=== PATIENT | male | born 1980 | race Caucasian/White ===

== ENCOUNTER 2017-03-08 08:34 | Emergency (ER) | payer MEDICARE, OTHER ==
[2017-03-08 08:41] VITALS: BP 132/70; PULSE 101; RESP 20; TEMP 97.6
[2017-03-08] MEDS ORDERED: ACTIVATED CHARCOAL 50 GM/240 ML BOTTLE NG-TUBE STA (08:55)
[2017-03-08] MEDS ORDERED: SODIUM CHLORIDE 0.9% 1,000 ML IV STA (08:55)
[2017-03-08] MEDS ORDERED: SODIUM CHLORIDE 0.9% 500 ML IV STA (08:55)
[2017-03-08 09:07] LABS: Basophils # (A) 0.1 k/uL (0-0.2); Basophils % (A) 1 %; CH 25.9; CHCM 31.3; Eosinophils # (A) 0.2 k/uL (0-0.7); Eosinophils % (A) 2 %; HCT 41.9 % (39.0-53.0); HDW 2.51; HGB 13.3 gm/dL (13.0-17.5); Hypochromasia Slight; Luc # (Auto) 0.39; Luc % (Auto) 4; Lymphocytes # (A) 1.6 k/uL (1.0-4.8); Lymphocytes % (A) 15 %; MCH 26.4 pg (25.0-35.0); MCHC 31.8 g/dL (31.0-37.0); MCV 83.2 fL (80.0-100.0); Mean Platelet Volume 7.7; Monocytes # (A) 0.6 k/uL (0-1.0); Monocytes % (A) 5 %; Neutrophils # (A) 7.7 k/uL (1.3-7.7); Neutrophils % (A) 74 %; RBC 5.04 m/uL (4.30-5.90); RDW 14.8 % (11.5-15.5); WBC 10.4 k/uL (3.8-10.6); WBC (Perox) 10.13
[2017-03-08 09:15] LABS: ALT 42 U/L (21-72); AST 25 U/L (17-59); Acetaminophen <10.0 ug/mL; Alcohol <10 mg/dL; Alkaline Phosphatase 68 U/L (38-126); Anion Gap 7 mmol/L; Blood Urea Nitrogen 11 mg/dL (9-20); Calcium 9.7 mg/dL (8.4-10.2); Carbon Dioxide 27 mmol/L (22-30); Chloride 106 mmol/L (98-107); Glucose 89 mg/dL (74-99); Non-African American GFR(MDRD) >60 (>60 ml/min/1.73 sqM); Potassium 4.3 mmol/L (3.5-5.1); Salicylate <1.0 mg/dL; Sodium 140 mmol/L (137-145); Total Bilirubin 0.2 mg/dL (0.2-1.3); Total Protein 6.6 g/dL (6.3-8.2)
--- NOTE | 2017-03-08 09:15 | ED ---
General Adult HPI - General Chief complaint: Overdose Stated complaint: Overdose Time Seen by Provider: 03/08/17 08:49 Source: patient, EMS, RN notes reviewed, old records reviewed Mode of arrival: EMS Limitations: no limitations, altered mental status - History of Present Illness Initial comments: This is a 36 shown male brought to ER for evaluation of psychiatric illness, psychosis, presumed overdose. Patient had possible overdose on lisinopril, unknown, Patient put in ED by mother, Patient also smokes medical marijuana, no known drugs or alcohol abuse. Does have history of psychiatric disease. Patient is in town for family wedding. Usual medications and instrument is related to him by health house healthcare provider. Patient himself is acutely agitated, denies homicidal and suicidal ideation - Related Data Home Medications Medication Instructions Recorded Confirmed Brexpiprazole [Rexulti] 4 mg PO HS 03/08/17 03/08/17 LORazepam [Ativan] 1 mg PO BID 03/08/17 03/08/17 [place] Carbonate 1,200 mg PO HS 03/08/17 03/08/17 Metoprolol Succinate (ER) [Toprol 50 mg PO DAILY 03/08/17 03/08/17 Xl] OXcarbazepine 600 mg PO BID 03/08/17 03/08/17 Paliperidone IM [Invega Sustenna] 234 mg IM Q14D 03/08/17 03/08/17 Paliperidone [Paliperidone ER] 6 mg PO BID 03/08/17 03/08/17 Triamcinolone 0.1% Cream [Kenalog] 1 applicatio TOPICAL BID 03/08/17 03/08/17 Zolpidem [Ambien] 10 mg PO HS PRN 03/08/17 03/08/17 traZODone HCL 100 mg PO HS 03/08/17 03/08/17 Allergies Allergy/AdvReac Type Severity Reaction Status Date / Time adhesive tape Allergy Rash/Hives Verified 03/08/17 12:15 Review of Systems ROS Statement: Those systems with pertinent positive or pertinent negative responses have been documented in the HPI. ROS Other: All systems not noted in ROS Statement are negative. Past Medical History Past Medical History: No Reported History History of Any Multi-Drug Resistant Organisms: None Reported Past Surgical History: No Surgical Hx Reported Past Psychological History: Anxiety, Schizophrenia Smoking Status: Current every day smoker Past Alcohol Use History: Occasional Past Drug Use History: Cocaine, Marijuana General Exam Limitations: no limitations General appearance: alert, in no apparent distress Head exam: Present: atraumatic, normocephalic, normal inspection Eye exam: Present: normal appearance, PERRL, EOMI. Absent: scleral icterus, conjunctival injection, periorbital swelling ENT exam: Present: normal exam, mucous membranes moist Neck exam: Present: normal inspection. Absent: tenderness, meningismus, lymphadenopathy Respiratory exam: Present: normal lung sounds bilaterally. Absent: respiratory distress, wheezes, rales, rhonchi, stridor Cardiovascular Exam: Present: regular rate, normal rhythm, normal heart sounds. Absent: systolic murmur, diastolic murmur, rubs, gallop, clicks GI/Abdominal exam: Present: soft, normal bowel sounds. Absent: distended, tenderness, guarding, rebound, rigid Extremities exam: Present: normal inspection, full ROM, normal capillary refill. Absent: tenderness, pedal edema, joint swelling, calf tenderness Back exam: Present: normal inspection Neurological exam: Present: alert, oriented X3, CN II-XII intact Psychiatric exam: Present: normal affect, normal mood Skin exam: Present: warm, dry, intact, normal color. Absent: rash Course Vital Signs 03/08/17 08:36 Temperature 97.6 F Pulse Rate 101 H Respiratory 20 Rate Blood Pressure 132/70 O2 Sat by Pulse 99 Oximetry - Reevaluation(s) Reevaluation #1: 03/08/17 09:43 Patient refuses to emergency room, patient's mom here in the emergency room refusing to petition patient for psychiatric evaluation, patient remains benign , source was thought denies overdose today. Medical Decision Making - Medical Decision Making 36 no the air for psychiatric evaluation. Patient and patient's mother refusing psychiatric evaluation at this time. Patient discharged into mother's care. - Lab Data Result diagrams: 03/08/17 08:55 03/08/17 08:55 Lab Results 03/08/17 03/08/17 03/08/17 Range/Units 08:55 08:55 08:55 WBC 10.4 (3.8-10.6) k/uL RBC 5.04 (4.30-5.90) m/uL Hgb 13.3 (13.0-17.5) gm/dL Hct 41.9 (39.0-53.0) % MCV 83.2 (80.0-100.0) fL MCH 26.4 (25.0-35.0) pg MCHC 31.8 (31.0-37.0) g/dL RDW 14.8 (11.5-15.5) % Plt Count 238 (150-450) k/uL Neutrophils % 74 % Lymphocytes % 15 % Monocytes % 5 % Eosinophils % 2 % Basophils % 1 % Neutrophils # 7.7 (1.3-7.7) k/uL Lymphocytes # 1.6 (1.0-4.8) k/uL Monocytes # 0.6 (0-1.0) k/uL Eosinophils # 0.2 (0-0.7) k/uL Basophils # 0.1 (0-0.2) k/uL Hypochromasia Slight PT (9.0-12.0) sec INR (<1.2) Sodium 140 (137-145) mmol/L Potassium 4.3 (3.5-5.1) mmol/L Chloride 106 (98-107) mmol/L Carbon Dioxide 27 (22-30) mmol/L Anion Gap 7 mmol/L BUN 11 (9-20) mg/dL Creatinine 0.91 (0.66-1.25) mg/dL Est GFR (MDRD) Af Amer >60 (>60 ml/min/1.73 sqM) Est GFR (MDRD) Non-Af >60 (>60 ml/min/1.73 sqM) Glucose 89 (74-99) mg/dL Calcium 9.7 (8.4-10.2) mg/dL Total Bilirubin 0.2 (0.2-1.3) mg/dL AST 25 (17-59) U/L ALT 42 (21-72) U/L Alkaline Phosphatase 68 (38-126) U/L Total Creatine Kinase 258 H (55-170) U/L CK-MB (CK-2) 2.2 (0.0-2.4) ng/mL CK-MB (CK-2) Rel Index 0.9 Total Protein 6.6 (6.3-8.2) g/dL Albumin 4.0 (3.5-5.0) g/dL Lipase 72 (23-300) U/L Salicylates <1.0 mg/dL Acetaminophen <10.0 ug/mL Serum Alcohol <10 mg/dL 03/08/17 Range/Units 08:55 WBC (3.8-10.6) k/uL RBC (4.30-5.90) m/uL Hgb (13.0-17.5) gm/dL Hct (39.0-53.0) % MCV (80.0-100.0) fL MCH (25.0-35.0) pg MCHC (31.0-37.0) g/dL RDW (11.5-15.5) % Plt Count (150-450) k/uL Neutrophils % % Lymphocytes % % Monocytes % % Eosinophils % % Basophils % % Neutrophils # (1.3-7.7) k/uL Lymphocytes # (1.0-4.8) k/uL Monocytes # (0-1.0) k/uL Eosinophils # (0-0.7) k/uL Basophils # (0-0.2) k/uL Hypochromasia PT 10.6 (9.0-12.0) sec INR 1.0 (<1.2) Sodium (137-145) mmol/L Potassium (3.5-5.1) mmol/L Chloride (98-107) mmol/L Carbon Dioxide (22-30) mmol/L Anion Gap mmol/L BUN (9-20) mg/dL Creatinine (0.66-1.25) mg/dL Est GFR (MDRD) Af Amer (>60 ml/min/1.73 sqM) Est GFR (MDRD) Non-Af (>60 ml/min/1.73 sqM) Glucose (74-99) mg/dL Calcium (8.4-10.2) mg/dL Total Bilirubin (0.2-1.3) mg/dL AST (17-59) U/L ALT (21-72) U/L Alkaline Phosphatase (38-126) U/L Total Creatine Kinase (55-170) U/L CK-MB (CK-2) (0.0-2.4) ng/mL CK-MB (CK-2) Rel Index Total Protein (6.3-8.2) g/dL Albumin (3.5-5.0) g/dL Lipase (23-300) U/L Salicylates mg/dL Acetaminophen ug/mL Serum Alcohol mg/dL Disposition Clinical Impression: Suicidal behavior, Bipolar disorder, Shelly Disposition: Left Against Medical Advice Referrals: Nonstaff,Physician [REFERRING] - 1-2 days
[2017-03-08 09:26] LABS: Prothrombin Time 10.6 sec (9.0-12.0)
[2017-03-08 09:36] LABS: Creatine Kinase MB 2.2 ng/mL (0.0-2.4)
--- NOTE | 2017-03-10 08:52 | CDI ---
Documentation Clarification OP Dear Seamus Stevens Please do addendum to ED report for missing Clinical Impression Thank you, Lucas German Quality Control Assistant If you have any questions, please contact [employer]ice at [phone] [facility]
== END 2017-03-08 09:40 | disposition left against medical advice (07) ==
LOC: EC 08:34
DX: F30.9 Manic episode, unspecified (principal); R45.851 Suicidal ideations; F41.9 Anxiety disorder, unspecified; F20.9 Schizophrenia, unspecified; F17.200 Nicotine dependence, unspecified, uncomplicated; Z53.29 Procedure and treatment not carried out because of patient's decision for other reasons; Z91.048 Other nonmedicinal substance allergy status; Z79.899 Other long term (current) drug therapy
CPT/HCPCS: 36415; 80053; 80178; 80306; 80320; 82075; 82550; 82553; 83520; 83690; 85025; 85610; 96360; 99284

== ENCOUNTER 2017-03-08 11:57 | Emergency (ER) | payer MEDICARE, OTHER ==
[2017-03-08 12:22] VITALS: RESP 18
--- NOTE | 2017-03-08 12:34 | ED ---
General Adult HPI - General Chief complaint: Psychiatric Symptoms Stated complaint: mental health Time Seen by Provider: 03/08/17 12:15 Source: patient, RN notes reviewed, old records reviewed Mode of arrival: ambulatory Limitations: no limitations - History of Present Illness Initial comments: This is a 36 [place] earlier for evaluation by psychiatry, patient's blood in for reevaluation today of psychiatric disease and illness. [place] under petition this time. Patient is still combative and hostile, noncooperative, is reviewed from EMS and family, - Related Data Home Medications Medication Instructions Recorded Confirmed Brexpiprazole [Rexulti] 4 mg PO HS 03/08/17 03/08/17 LORazepam [Ativan] 1 mg PO BID 03/08/17 03/08/17 [place] Carbonate 1,200 mg PO HS 03/08/17 03/08/17 Metoprolol Succinate (ER) [Toprol 50 mg PO DAILY 03/08/17 03/08/17 Xl] OXcarbazepine 600 mg PO BID 03/08/17 03/08/17 Paliperidone IM [Invega Sustenna] 234 mg IM Q14D 03/08/17 03/08/17 Paliperidone [Paliperidone ER] 6 mg PO BID 03/08/17 03/08/17 Triamcinolone 0.1% Cream [Kenalog] 1 applicatio TOPICAL BID 03/08/17 03/08/17 Zolpidem [Ambien] 10 mg PO HS PRN 03/08/17 03/08/17 traZODone HCL 100 mg PO HS 03/08/17 03/08/17 Allergies Allergy/AdvReac Type Severity Reaction Status Date / Time adhesive tape Allergy Rash/Hives Verified 03/08/17 12:15 Review of Systems ROS Statement: Those systems with pertinent positive or pertinent negative responses have been documented in the HPI. ROS Other: All systems not noted in ROS Statement are negative. Past Medical History Past Medical History: No Reported History History of Any Multi-Drug Resistant Organisms: None Reported Past Surgical History: No Surgical Hx Reported Past Psychological History: Anxiety, Schizophrenia Smoking Status: Current every day smoker Past Alcohol Use History: Occasional Past Drug Use History: Cocaine, Marijuana General Exam Limitations: no limitations General appearance: alert, in no apparent distress Head exam: Present: atraumatic, normocephalic, normal inspection Eye exam: Present: normal appearance, PERRL, EOMI. Absent: scleral icterus, conjunctival injection, periorbital swelling ENT exam: Present: normal exam, mucous membranes moist Neck exam: Present: normal inspection. Absent: tenderness, meningismus, lymphadenopathy Respiratory exam: Present: normal lung sounds bilaterally. Absent: respiratory distress, wheezes, rales, rhonchi, stridor Cardiovascular Exam: Present: regular rate, normal rhythm, normal heart sounds. Absent: systolic murmur, diastolic murmur, rubs, gallop, clicks GI/Abdominal exam: Present: soft, normal bowel sounds. Absent: distended, tenderness, guarding, rebound, rigid Extremities exam: Present: normal inspection, full ROM, normal capillary refill. Absent: tenderness, pedal edema, joint swelling, calf tenderness Back exam: Present: normal inspection Neurological exam: Present: alert, oriented X3, CN II-XII intact Psychiatric exam: Present: normal affect, normal mood Skin exam: Present: warm, dry, intact, normal color. Absent: rash Course Vital Signs 03/08/17 12:16 Temperature 98.1 F Pulse Rate 111 H Respiratory 18 Rate Blood Pressure 117/62 O2 Sat by Pulse 96 Oximetry - Reevaluation(s) Reevaluation #1: 03/08/17 12:33 Patient medically clear for psychiatric evaluation Reevaluation #2: 03/08/17 12:34 Evaluating patient's current chart which shows no overdose, all toxins are negative Medical Decision Making - Medical Decision Making 36 male to ED with psychiatric disease patient was seen and evaluated by psychiatry and can be discharged home. - Lab Data Lab Results 03/08/17 03/08/17 Range/Units 08:57 12:50 Urine Opiates Screen Not Detected (NotDetected) Ur Oxycodone Screen Not Detected (NotDetected) Urine Methadone Screen Not Detected (NotDetected) Ur Propoxyphene Screen Not Detected (NotDetected) Ur Barbiturates Screen Not Detected (NotDetected) U Tricyclic Antidepress Not Detected (NotDetected) Ur Phencyclidine Scrn Not Detected (NotDetected) Ur Amphetamines Screen Not Detected (NotDetected) U Methamphetamines Scrn Not Detected (NotDetected) U Benzodiazepines Scrn Detected H (NotDetected) [place] 0.8 mmol/L Urine Cocaine Screen Not Detected (NotDetected) U Marijuana (THC) Screen Detected H (NotDetected) Disposition Clinical Impression: Shelly, Bipolar disorder Disposition: HOME SELF-CARE Condition: Good Instructions: Mood Disorders (ED) Referrals: Nonstaff,Physician [Primary Care Provider] - 1-2 days
[2017-03-08 16:09] VITALS: BP 150/91; PULSE 101; TEMP 97.6
== END 2017-03-08 16:08 | disposition home or self-care (01) ==
LOC: EC 11:57
DX: F31.9 Bipolar disorder, unspecified (principal); F41.9 Anxiety disorder, unspecified; F20.9 Schizophrenia, unspecified; F17.200 Nicotine dependence, unspecified, uncomplicated; Z79.899 Other long term (current) drug therapy; Z91.048 Other nonmedicinal substance allergy status
CPT/HCPCS: 36415; 80178; 80306; 82075; 99284

== ENCOUNTER 2018-03-06 13:04 | Emergency (ER) | payer MEDICARE, OTHER ==
--- NOTE | 2018-03-06 14:54 | ED ---
General Adult HPI - General Source: patient, family Mode of arrival: ambulatory Limitations: no limitations <Stephen Álvarez - Last Filed: 03/06/18 14:54> <Soren Laurent - Last Filed: 03/07/18 16:27> - General Chief complaint: Psychiatric Symptoms Stated complaint: Mental Health - History of Present Illness Initial comments: Dictation was produced using [employer] dictation software. please excuse any grammatical, word or spelling errors. Chief Complaint: 37-year-old male past medical history of illicit drug abuse, schizophrenia,, bipolar disease presents with suicidal and homicidal ideation. History of Present Illness: A 37-year-old male with mental delay with multiple psychiatric history presents with suicidal ideation and homicidal ideation. Patient states he is having auditory hallucinations. Patient is a poor historian. He presents with family member. Patient has history of being admitted to inpatient psych multiple medications. Patient has exhibited expressive behavior in psych facility. The ROS documented in this emergency department record has been reviewed and confirmed by me. Those systems with pertinent positive or negative responses have been documented in the HPI. All other systems are other negative and/or noncontributory. (Stephen Álvarez) - Related Data Home Medications Medication Instructions Recorded Confirmed Paliperidone IM [Invega Sustenna] 234 mg IM Q28D 03/08/17 03/07/18 Benztropine Mesylate [Cogentin] 2 mg PO DAILY 03/07/18 03/07/18 [place] Carbonate [[place] 1,800 mg PO DAILY 03/07/18 03/07/18 Carbonate ER] Metoprolol Succinate (ER) [Toprol 100 mg PO DAILY 03/07/18 03/07/18 Xl] OLANZapine 20 mg PO DAILY 03/07/18 03/07/18 [place]-3 Fatty Acids/Fish Oil [Fish 1 cap PO DAILY 03/07/18 03/07/18 Oil 1,000 mg Softgel] buPROPion XL [Wellbutrin Xl] 150 mg PO DAILY 03/07/18 03/07/18 metFORMIN HCL [Glucophage] 500 mg PO BID 03/07/18 03/07/18 Allergies Allergy/AdvReac Type Severity Reaction Status Date / Time adhesive tape Allergy Rash/Hives Verified 03/06/18 13:29 Review of Systems ROS Other: All systems not noted in ROS Statement are negative. <Stephen Álvarez - Last Filed: 03/06/18 14:54> ROS Other: All systems not noted in ROS Statement are negative. <Soren Laurent - Last Filed: 03/07/18 16:27> ROS Statement: Those systems with pertinent positive or pertinent negative responses have been documented in the HPI. Past Medical History Past Medical History: No Reported History History of Any Multi-Drug Resistant Organisms: None Reported Past Surgical History: No Surgical Hx Reported Past Psychological History: Anxiety, Bipolar, Schizophrenia Smoking Status: Current every day smoker Past Alcohol Use History: Occasional Past Drug Use History: Cocaine, Marijuana <Stephen Álvarez - Last Filed: 03/06/18 14:54> General Exam Limitations: no limitations <Stephen Álvarez - Last Filed: 03/06/18 14:54> <Soren Laurent - Last Filed: 03/07/18 16:27> - General Exam Comments Initial Comments: PHYSICAL EXAM: General Impression: Alert and oriented x3, not in acute distress HEENT: Normocephalic atraumatic, extra-ocular movements intact, pupils equal and reactive to light bilaterally, mucous membranes moist. Cardiovascular: Heart regular rate and rhythm, S1&S2 audible, no murmurs, rubs or gallops Chest: Lungs clear to auscultation bilaterally, no rhonchi, no wheeze, no rales Abdomen: Bowel sounds present, abdomen soft, non-tender, non-distended, no organomegaly Musculoskeletal: Pulses present and equal in all extremities, no peripheral edema Motor: Power 5/5 bilaterally, no focal deficits noted Neurological: CN II-XII grossly intact, no focal motor or sensory deficits noted Skin: Intact with no visualized rashes Psych: Tangential speech, poor affect (Stephen Álvarez) Course <Stephen Álvarez - Last Filed: 03/06/18 14:54> <Soren Laurent - Last Filed: 03/07/18 16:27> Vital Signs 03/06/18 03/07/18 03/07/18 13:26 05:29 14:59 Temperature 98.5 F 98.0 F 98.9 F Pulse Rate 101 H 92 98 Respiratory 20 17 16 Rate Blood Pressure 144/84 139/58 134/75 O2 Sat by Pulse 98 98 100 Oximetry - Reevaluation(s) Reevaluation #1: 03/07/18 16:26 The patient rested comfortably throughout the morning and afternoon. He will be transferred to [facility] for inpatient evaluation and treatment (Soren Laurent) Medical Decision Making <Stephen Álvarez - Last Filed: 03/06/18 14:54> - Lab Data Result diagrams: 03/06/18 15:33 03/06/18 15:33 <Soren Laurent - Last Filed: 03/07/18 16:27> - Medical Decision Making ED course: Old male with extensive psychiatric history presents with suicidal, homicidal ideation and auditory hallucinations. Clinical presentation consistent with psychosis. Vital signs are within normal limits. Patient is well-appearing. Time. Bedside. Pending EPS assessment and disposition recommendations (Stephen Álvarez) - Lab Data Lab Results 03/06/18 03/06/18 03/06/18 Range/Units 15:33 15:33 18:10 WBC 10.1 (3.8-10.6) k/uL RBC 5.13 (4.30-5.90) m/uL Hgb 12.8 L (13.0-17.5) gm/dL Hct 40.8 (39.0-53.0) % MCV 79.5 L (80.0-100.0) fL MCH 24.9 L (25.0-35.0) pg MCHC 31.3 (31.0-37.0) g/dL RDW 14.9 (11.5-15.5) % Plt Count 272 (150-450) k/uL Neutrophils % 70 % Lymphocytes % 20 % Monocytes % 6 % Eosinophils % 2 % Basophils % 1 % Neutrophils # 7.0 (1.3-7.7) k/uL Lymphocytes # 2.0 (1.0-4.8) k/uL Monocytes # 0.6 (0-1.0) k/uL Eosinophils # 0.2 (0-0.7) k/uL Basophils # 0.1 (0-0.2) k/uL Sodium 138 (137-145) mmol/L Potassium 4.3 (3.5-5.1) mmol/L Chloride 106 (98-107) mmol/L Carbon Dioxide 25 (22-30) mmol/L Anion Gap 7 mmol/L BUN 7 L (9-20) mg/dL Creatinine 1.00 (0.66-1.25) mg/dL Est GFR (CKD-EPI)AfAm >90 (>60 ml/min/1.73 sqM) Est GFR (CKD-EPI)NonAf >90 (>60 ml/min/1.73 sqM) Glucose 116 H (74-99) mg/dL Calcium 9.8 (8.4-10.2) mg/dL Total Bilirubin 0.3 (0.2-1.3) mg/dL AST 25 (17-59) U/L ALT 52 (21-72) U/L Alkaline Phosphatase 59 (38-126) U/L Total Protein 7.1 (6.3-8.2) g/dL Albumin 4.2 (3.5-5.0) g/dL Urine Color Light Yellow Urine Appearance Clear (Clear) Urine pH 7.0 (5.0-8.0) Ur Specific [place] 1.004 (1.001-1.035) Urine Protein Negative (Negative) Urine Glucose (UA) Negative (Negative) Urine Ketones Negative (Negative) Urine Blood Negative (Negative) Urine Nitrite Negative (Negative) Urine Bilirubin Negative (Negative) Urine Urobilinogen <2.0 (<2.0) mg/dL Ur Leukocyte Esterase Negative (Negative) Urine Opiates Screen Not Detected (NotDetected) Ur Oxycodone Screen Not Detected (NotDetected) Urine Methadone Screen Not Detected (NotDetected) Ur Propoxyphene Screen Not Detected (NotDetected) Ur Barbiturates Screen Not Detected (NotDetected) U Tricyclic Antidepress Not Detected (NotDetected) Ur Phencyclidine Scrn Not Detected (NotDetected) Ur Amphetamines Screen Not Detected (NotDetected) U Methamphetamines Scrn Not Detected (NotDetected) U Benzodiazepines Scrn Not Detected (NotDetected) Urine Cocaine Screen Not Detected (NotDetected) U Marijuana (THC) Screen Detected H (NotDetected) Disposition <Stephen Álvarez - Last Filed: 03/06/18 14:54> <Soren Laurent - Last Filed: 03/07/18 16:27> Clinical Impression: Depression, Suicidal ideation, Acute psychosis, Homicidal ideation Disposition: TRANSFER TO PSYCH HOSP/UNIT Condition: Stable Referrals: Nonstaff,Physician [Primary Care Provider] - 1-2 days
[2018-03-06] MEDS ORDERED: LORazepam 1 MG TAB PO STA (15:09)
[2018-03-06] MEDS ORDERED: NICOTINE 14MG/24HR PATCH TRANSDERM STA (15:09)
[2018-03-06 15:48] LABS: Basophils # (A) 0.1 k/uL (0-0.2); Basophils % (A) 1 %; Eosinophils # (A) 0.2 k/uL (0-0.7); Eosinophils % (A) 2 %; HCT 40.8 % (39.0-53.0); HGB 12.8 gm/dL (13.0-17.5); Lymphocytes % (A) 20 %; MCH 24.9 pg (25.0-35.0); MCHC 31.3 g/dL (31.0-37.0); MCV 79.5 fL (80.0-100.0); Mean Platelet Volume 7.8; Monocytes # (A) 0.6 k/uL (0-1.0); Monocytes % (A) 6 %; Neutrophils % (A) 70 %; Platelet Count 272 k/uL (150-450); RBC 5.13 m/uL (4.30-5.90); RDW 14.9 % (11.5-15.5); WBC 10.1 k/uL (3.8-10.6)
[2018-03-06 16:16] LABS: ALT 52 U/L (21-72); AST 25 U/L (17-59); Albumin 4.2 g/dL (3.5-5.0); Alkaline Phosphatase 59 U/L (38-126); Anion Gap 7 mmol/L; Blood Urea Nitrogen 7 mg/dL (9-20); Calcium 9.8 mg/dL (8.4-10.2); Carbon Dioxide 25 mmol/L (22-30); Chloride 106 mmol/L (98-107); Glucose 116 mg/dL (74-99); Potassium 4.3 mmol/L (3.5-5.1); Sodium 138 mmol/L (137-145); Total Bilirubin 0.3 mg/dL (0.2-1.3); Total Protein 7.1 g/dL (6.3-8.2)
[2018-03-06 18:16] LABS: Appearance,Urine Clear (Clear); Bilirubin,Urine Negative (Negative); Blood,Urine Negative (Negative); Color,Urine Light Yellow; Glucose,Urine (UA) Negative (Negative); Ketones,Urine Negative (Negative); Leukocyte Esterase,Urine Negative (Negative); Nitrite,Urine Negative (Negative); Protein,Urine Negative (Negative); Specific Gravity,Urine 1.004 (1.001-1.035); Urobilinogen,Urine <2.0 mg/dL (<2.0)
[2018-03-06 18:26] LABS: Amphetamine Screen,Urine Not Detected (NotDetected); Barbiturate Screen,Urine Not Detected (NotDetected); Benzodiazepines Screen,Urine Not Detected (NotDetected); Cocaine Screen,Urine Not Detected (NotDetected); Methadone Screen, Urine Not Detected (NotDetected); Opiate Screen,Urine Not Detected (NotDetected); Oxycodone Screen, Urine Not Detected (NotDetected); Phencyclidine Screen,Urine Not Detected (NotDetected); Tricyclic Antidepressant,Urine Not Detected (NotDetected); Urn Cannabinoid Scrn Detected (NotDetected)
[2018-03-07] MEDS ORDERED: NICOTINE 14MG/24HR PATCH TRANSDERM STA (09:17)
[2018-03-07] MEDS ORDERED: buPROPion XL 150 MG TAB.ER.24H PO SCH (12:30)
[2018-03-07] MEDS ORDERED: BENZTROPINE MESYLATE 1 MG TAB PO SCH (12:30)
[2018-03-07 15:00] VITALS: BP 134/75; PULSE 98; RESP 16; TEMP 98.9
[2018-03-07] MEDS ORDERED: metFORMIN 500 MG TAB PO SCH (17:30)
[2018-03-08] MEDS ORDERED: NON-FORMULARY DRUG (Omega-3 Fatty Acids/Fish Oil [Fish Oil 1,000 Mg Softgel] 1 CAP) PO SCH (09:00)
[2018-03-08] MEDS ORDERED: LITHIUM CARBONATE ER 450 MG TABLET.ER PO SCH (09:00)
[2018-03-08] MEDS ORDERED: OLANZapine 10 MG TAB PO SCH (09:00)
[2018-03-08] MEDS ORDERED: METOPROLOL SUCCINATE (ER) 100 MG TAB.ER.24H PO SCH (09:00)
== END 2018-03-07 18:41 ==
LOC: EC 13:04
DX: F32.9 Major depressive disorder, single episode, unspecified (principal); F23 Brief psychotic disorder; R45.851 Suicidal ideations; R45.850 Homicidal ideations; F41.9 Anxiety disorder, unspecified; F17.200 Nicotine dependence, unspecified, uncomplicated; Z79.84 Long term (current) use of oral hypoglycemic drugs; Z79.899 Other long term (current) drug therapy; Z91.048 Other nonmedicinal substance allergy status
CPT/HCPCS: 82075; 36415; 80053; 85025; 81003; 80306; 99285; S4990 ×2

== ENCOUNTER → 2019-07-13 | Outpatient (CLI) | payer MEDICARE, OTHER ==
[2019-07-13 15:02] LABS: Basophils # (A) 0.1 k/uL (0-0.2); Basophils % (A) 1 %; Eosinophils # (A) 0.2 k/uL (0-0.7); Eosinophils % (A) 2 %; HCT 48.2 % (39.0-53.0); HGB 14.7 gm/dL (13.0-17.5); Hypochromasia Slight; Lymphocytes # (A) 2.9 k/uL (1.0-4.8); Lymphocytes % (A) 32 %; MCH 24.9 pg (25.0-35.0); MCHC 30.5 g/dL (31.0-37.0); MCV 81.8 fL (80.0-100.0); Mean Platelet Volume 8.8; Monocytes # (A) 0.4 k/uL (0-1.0); Monocytes % (A) 5 %; Neutrophils # (A) 5.1 k/uL (1.3-7.7); Neutrophils % (A) 58 %; Platelet Count 275 k/uL (150-450); RDW 14.2 % (11.5-15.5); WBC 8.9 k/uL (3.8-10.6)
== END | disposition home or self-care (01) ==
LOC: LABWHC1 14:24
DX: Z51.81 Encounter for therapeutic drug level monitoring (principal); Z79.899 Other long term (current) drug therapy
CPT/HCPCS: 36415; 85025

== ENCOUNTER → 2019-10-26 | Outpatient (CLI) | payer MEDICARE, OTHER ==
[2019-10-26 09:00] LABS: Basophils # (A) 0.1 k/uL (0-0.2); Basophils % (A) 1 %; Eosinophils # (A) 0.2 k/uL (0-0.7); Eosinophils % (A) 2 %; HCT 47.4 % (39.0-53.0); HGB 14.9 gm/dL (13.0-17.5); Lymphocytes # (A) 3.5 k/uL (1.0-4.8); Lymphocytes % (A) 32 %; MCH 25.4 pg (25.0-35.0); MCHC 31.5 g/dL (31.0-37.0); MCV 80.9 fL (80.0-100.0); Mean Platelet Volume 8.4; Monocytes # (A) 0.6 k/uL (0-1.0); Monocytes % (A) 6 %; Neutrophils # (A) 6.1 k/uL (1.3-7.7); Neutrophils % (A) 56 %; Platelet Count 325 k/uL (150-450); RBC 5.86 m/uL (4.30-5.90); WBC 10.9 k/uL (3.8-10.6)
== END | disposition home or self-care (01) ==
LOC: LABWHC1 08:38
DX: F31.9 Bipolar disorder, unspecified (principal)
CPT/HCPCS: 36415; 82947; 85025

== ENCOUNTER → 2020-01-05 | Outpatient (CLI) | payer MEDICARE, OTHER ==
[2020-01-05 15:19] LABS: Basophils % (A) 1 %; Eosinophils # (A) 0.2 k/uL (0-0.7); Eosinophils % (A) 2 %; HCT 46.8 % (39.0-53.0); Hypochromasia Slight; Lymphocytes # (A) 2.5 k/uL (1.0-4.8); Lymphocytes % (A) 29 %; MCH 26.4 pg (25.0-35.0); MCHC 32.1 g/dL (31.0-37.0); MCV 82.2 fL (80.0-100.0); Mean Platelet Volume 8.7; Monocytes # (A) 0.4 k/uL (0-1.0); Monocytes % (A) 5 %; Neutrophils # (A) 5.3 k/uL (1.3-7.7); Neutrophils % (A) 62 %; Platelet Count 303 k/uL (150-450); RBC 5.69 m/uL (4.30-5.90); RDW 14.3 % (11.5-15.5); WBC 8.5 k/uL (3.8-10.6)
== END | disposition home or self-care (01) ==
LOC: LABWHC1 14:27
PROVIDERS: ATTEND Psychiatry & Neurology Psychiatry
DX: F31.9 Bipolar disorder, unspecified (principal)
CPT/HCPCS: 36415; 82947; 85025

== ENCOUNTER → 2020-01-31 | Outpatient (CLI) | payer MEDICARE, OTHER ==
[2020-01-31 15:31] LABS: Basophils # (A) 0.1 k/uL (0-0.2); Basophils % (A) 1 %; Eosinophils # (A) 0.1 k/uL (0-0.7); Eosinophils % (A) 2 %; HCT 47.9 % (39.0-53.0); HGB 14.8 gm/dL (13.0-17.5); Lymphocytes # (A) 2.7 k/uL (1.0-4.8); Lymphocytes % (A) 30 %; MCV 80.7 fL (80.0-100.0); Mean Platelet Volume 8.7; Monocytes # (A) 0.5 k/uL (0-1.0); Monocytes % (A) 5 %; Neutrophils # (A) 5.4 k/uL (1.3-7.7); Neutrophils % (A) 60 %; Platelet Count 310 k/uL (150-450); RBC 5.94 m/uL (4.30-5.90); RDW 14.3 % (11.5-15.5); WBC 8.9 k/uL (3.8-10.6)
== END | disposition home or self-care (01) ==
LOC: LABWHC1 14:50
PROVIDERS: ATTEND Psychiatry & Neurology Psychiatry
DX: F31.9 Bipolar disorder, unspecified (principal)
CPT/HCPCS: 36415; 82947; 85025

== ENCOUNTER → 2020-02-27 | Outpatient (CLI) | payer MEDICARE, OTHER ==
[2020-02-27 10:15] LABS: Basophils # (A) 0.1 k/uL (0-0.2); Basophils % (A) 1 %; Eosinophils # (A) 0.1 k/uL (0-0.7); Eosinophils % (A) 2 %; HGB 14.2 gm/dL (13.0-17.5); Hypochromasia Moderate; Lymphocytes # (A) 2.6 k/uL (1.0-4.8); Lymphocytes % (A) 34 %; MCH 25.2 pg (25.0-35.0); MCHC 30.3 g/dL (31.0-37.0); MCV 83.2 fL (80.0-100.0); Mean Platelet Volume 9.2; Monocytes # (A) 0.4 k/uL (0-1.0); Monocytes % (A) 5 %; Neutrophils # (A) 4.5 k/uL (1.3-7.7); Neutrophils % (A) 57 %; Platelet Count 268 k/uL (150-450); RBC 5.65 m/uL (4.30-5.90); RDW 13.7 % (11.5-15.5); WBC 7.8 k/uL (3.8-10.6)
== END | disposition home or self-care (01) ==
LOC: LABWHC1 09:11
PROVIDERS: ATTEND Psychiatry & Neurology Psychiatry
DX: F20.9 Schizophrenia, unspecified (principal); F31.9 Bipolar disorder, unspecified
CPT/HCPCS: 36415; 85025

== ENCOUNTER → 2020-03-22 | Outpatient (CLI) | payer MEDICARE, OTHER ==
[2020-03-22 14:19] LABS: Basophils # (A) 0.1 k/uL (0-0.2); Basophils % (A) 1 %; Eosinophils # (A) 0.1 k/uL (0-0.7); Eosinophils % (A) 2 %; HCT 47.9 % (39.0-53.0); HGB 14.7 gm/dL (13.0-17.5); Lymphocytes # (A) 2.3 k/uL (1.0-4.8); Lymphocytes % (A) 27 %; MCH 24.8 pg (25.0-35.0); MCHC 30.8 g/dL (31.0-37.0); MCV 80.4 fL (80.0-100.0); Mean Platelet Volume 8.7; Monocytes # (A) 0.4 k/uL (0-1.0); Monocytes % (A) 5 %; Neutrophils # (A) 5.1 k/uL (1.3-7.7); Neutrophils % (A) 62 %; Platelet Count 274 k/uL (150-450); RBC 5.96 m/uL (4.30-5.90); WBC 8.2 k/uL (3.8-10.6)
== END | disposition home or self-care (01) ==
LOC: LABWHC1 12:21
PROVIDERS: ATTEND Psychiatry & Neurology Psychiatry
DX: F31.9 Bipolar disorder, unspecified (principal); F20.9 Schizophrenia, unspecified
CPT/HCPCS: 36415; 85025